=== PATIENT | female | born 1990 | race Asian ===

== ENCOUNTER 2019-01-25 12:12 | Emergency (ER) | payer BC, OTHER ==
[~2019-01-25] VITALS: Ht 157.5 cm; Wt 70.7 kg
[~2019-01-25 12:12] MED LIST: CEPH-443 PO; IBUP-1542 PO
[2019-01-25 12:26] VITALS: PULSE 67; Ht 157.5 cm; Wt 70.7 kg
[2019-01-25] MEDS ORDERED: LIDOCAINE/MYLANTA 40 ML BTL PO STA (15:27)
[2019-01-25] MEDS ORDERED: SULF1TAB31 PO (17:02)
[2019-01-25] MEDS ORDERED: MAG355OR14 PO (17:02)
[2019-01-25] MEDS ORDERED: OMEP40CA6 PO (17:02)
--- NOTE | 2019-01-25 17:21 | ERD ---
ER Documentation Chief Complaint Chief Complaint right lower abdominal pain x 3 days sent by pmd r/o appendicitis HPI This is a 28-year-old female patient who presents to emergency room with request from her primary care doctor for work-up for rule out appendicitis as patient was having right lower quadrant pain while in her doctor's office. Patient is well-appearing, nontoxic, now complaining of pain in left upper quadrant. Altaf klein denies any abdominal surgeries other than in 2015, history of GERD, LMP 1 week ago. ROS All systems reviewed and are negative except as per history of present illness. Medications Home Meds Active Scripts Sulfamethoxazole/Trimethoprim* (Bactrim Ds* Tablet) 1 Each Tablet, 1 TAB PO BID for cystitis for 3 Days, #6 TAB Prov:FAUZIA WIGGINS NP 01/25/19 Mag Hydrox/Al Hydrox/Simeth (Maalox Advanced Suspension) 355 Ml Oral.susp, 10 ML PO prn PRN for DISTENSION/GAS/BLOATING for 10 Days, #100 ML Prov:FAUZIA WIGGINS NP 01/25/19 Omeprazole* (Omeprazole*) 40 Mg Capsule.dr, 40 MG PO DAILY, #30 CAP Prov:FAUZIA WIGGINS NP 01/25/19 Ibuprofen* (Motrin*) 600 Mg Tab, 600 MG PO Q6 PRN for FEVER, #30 Prov:RAKESH BEY MD 04/12/15 Cephalexin* (Keflex*) 500 Mg Capsule, 500 MG PO Q6 for 7 Days, CAP Prov:RAKESH BEY MD 04/12/15 Allergies Allergies: Coded Allergies: No Known Allergy (Unverified , 04/12/15) PMhx/Soc History of Surgery: Yes (C SECTION X2) Anesthesia Reaction: No Hx Neurological Disorder: No Hx Respiratory Disorders: No Hx Cardiac Disorders: No Hx Psychiatric Problems: No Hx Miscellaneous Medical Probl: No Hx Alcohol Use: No Hx Substance Use: No Hx Tobacco Use: No Smoking Status: Never smoker FmHx Family History: No diabetes, No coronary disease, No other Physical Exam Vitals Vital Signs Date Temp Pulse Resp B/P (MAP) Pulse Ox O2 O2 Flow FiO2 Time Delivery Rate 01/25/19 98.3 67 18 165/96 97 12:26 (119) Physical Exam Const: No acute distress Head: Atraumatic Eyes: Normal Conjunctiva ENT: Normal External Ears, Nose and Mouth. Drinks pink, moist, no petechiae, no lesions Neck: Full range of motion. No meningismus. No adenopathy, no thyromegaly Resp: Clear to auscultation bilaterally Cardio: Regular rate and rhythm, no murmurs Abd: Soft, non distended. Normal bowel sounds. Moderate tenderness at LUQ and epigastrium, mild tenderness RLQ, rebound tenderness, no tenderness at McBurney's point, no Nunez's. No pain with movement. Skin: No petechiae or rashes Back: No midline or flank tenderness Ext: No cyanosis, or edema Neur: Awake and alert Psych: Normal Mood and Affect Result Diagram: 01/25/19 1542 01/25/19 1542 Results 24 hrs Laboratory Tests Test 01/25/19 15:30 01/25/19 15:32 01/25/19 15:42 Urine Color YELLOW Urine Clarity SLIGHTLY CLOUDY Urine pH 6.0 Urine Specific [place] 1.017 Urine Ketones NEGATIVE mg/dL Urine Nitrite NEGATIVE mg/dL Urine Bilirubin NEGATIVE mg/dL Urine Urobilinogen NEGATIVE mg/dL Urine Leukocyte Esterase TRACE Caity/ul Urine Microscopic RBC 1 /HPF Urine Microscopic WBC 13 /HPF Urine Squamous Epithelial Cells FEW /HPF Urine Bacteria FEW /HPF Urine Hemoglobin 1+ mg/dL Urine Glucose NEGATIVE mg/dL Urine Total Protein NEGATIVE mg/dl POC Beta HCG, Qualitative NEGATIVE White Blood Count 8.2 10^3/ul Red Blood Count 4.65 10^6/ul Hemoglobin 13.2 g/dl Hematocrit 41.4 % Mean Corpuscular Volume 89.0 fl Mean Corpuscular Hemoglobin 28.4 pg Mean Corpuscular 31.9 g/dl Hemoglobin Concent Red Cell Distribution Width 12.5 % Platelet Count 339 10^3/UL Mean Platelet Volume 9.1 fl Immature Granulocytes % 0.400 % Neutrophils % 52.1 % Lymphocytes % 41.4 % Monocytes % 4.1 % Eosinophils % 1.3 % Basophils % 0.7 % Nucleated Red Blood Cells % 0.0 /100WBC Immature Granulocytes # 0.030 10^3/ul Neutrophils # 4.3 10^3/ul Lymphocytes # 3.4 10^3/ul Monocytes # 0.3 10^3/ul Eosinophils # 0.1 10^3/ul Basophils # 0.1 10^3/ul Nucleated Red Blood Cells # 0.0 10^3/ul Sodium Level 141 mmol/L Potassium Level 3.8 mmol/L Chloride Level 104 mmol/L Carbon Dioxide Level 28 mmol/L Anion Gap 9 Blood Urea Nitrogen 13 mg/dl Creatinine 0.70 mg/dl Est Glomerular Filtrat > 60 mL/min Rate mL/min Glucose Level 94 mg/dl Calcium Level 9.5 mg/dl Total Bilirubin 0.4 mg/dl Direct Bilirubin 0.00 mg/dl Indirect Bilirubin 0.4 mg/dl Aspartate Amino 22 IU/L Transf (AST/SGOT) Alanine 9 IU/L Aminotransferase (ALT/SGPT) Alkaline Phosphatase 74 IU/L Total Protein 8.5 g/dl Albumin 4.6 g/dl Globulin 3.90 g/dl Albumin/Globulin Ratio 1.17 Lipase 47 U/L Current Medications Medications Dose Sig/Leah Start Time Status Last (Trade) Ordered Route PRN Stop Time Admin Dose Reason Admin 40 ml ONCE STAT 01/25/19 DC 01/25/19 Miscellaneous PO 15:27 15:34 Medication 01/25/19 15:30 (Gi Cocktail (2)) Procedures/MDM This is a 28-year-old female patient with complaint of abdominal pain x3 days. ED COURSE: The patient was stable throughout ED course. I kept the patient and/or family informed of laboratory and diagnostic imaging results throughout the ED course. DIAGNOSTIC IMAGING: Not indicated at this time PROCEDURES: None. MEDICATIONS GIVEN: GI cocktail Patient tolerated medication well with no adverse reactions. Patient reported improvement in pain. MDM: Patient presents today with right lower quadrant left upper quadrant and epigastric abdominal pain. No vomiting, no diarrhea, no fever, reported hematuria.There is low suspicion for pyelonephritis, vaginitis, STI, or interstitial cystitis due to absence of clinical findings that would support a diagnosis more serious than uncomplicated UTI. There is low suspicion for appendicitis at this time as patient does not have a leukocytosis, no fever, no rebound tenderness in the RLQ. These diagnoses have been considered and excluded clinically. Nonetheless, it is understood by both the patient and provider that no clinical or diagnostic assessment can entirely exclude such diseases. Patient has been instructed on signs and symptoms of concern or with evolving condition with strict instructions to return to ED for reevaluation. DISPOSITION: The patient has been discharge home to follow-up with community physician. Departure Diagnosis: Primary Impression: Abdominal pain Condition: Stable Patient Instructions: Abdominal Pain, Gerd (Adult) Referrals: [facility] YOU HAVE RECEIVED A MEDICAL SCREENING EXAM AND THE RESULTS INDICATE THAT YOU DO NOT HAVE A CONDITION THAT REQUIRES URGENT TREATMENT IN THE EMERGENCY DEPARTMENT. FURTHER EVALUATION AND TREATMENT OF YOUR CONDITION CAN WAIT UNTIL YOU ARE SEEN IN YOUR DOCTORS OFFICE WITHIN THE NEXT 1-2 DAYS. IT IS YOUR RESPONSIBILITY TO MAKE AN APPOINTMENT FOR FOLOW-UP CARE. IF YOU HAVE A PRIMARY DOCTOR --you should call your primary doctor and schedule an appointment IF YOU DO NOT HAVE A PRIMARY DOCTOR YOU CAN CALL OUR PHYSICIAN REFERRAL HOTLINE AT IF YOU CAN NOT AFFORD TO SEE A PHYSICIAN YOU CAN CHOSE FROM THE FOLLOWING [facility] [address] [facility] [address] [facility] [address] [facility] [address] [facility] [address] [facility]. [facility]. [address] Additional Instructions: Thank you very much for allowing us to participate in your care. Your health and safety is our top priority at [facility]. Call your primary care doctor TOMORROW for an appointment during the next 2-4 days and bring all the information and medications prescribed. Have prescriptions filled and follow precisely the directions on the label. If the symptoms get worse and your provider is unavailable, return to the Emergency Department immediately. RETURN TO THE ER IMMEDIATELY FOR WORSEING OF ABDOMINAL PAIN, FEVER, DECREASED ORAL INTAKE, BLOOD IN URINE OR STOOL FAUZIA WIGGINS NP January 25, 2019 17:20
[2019-01-25 17:26] VITALS: BP 152/90; RESP 18
== END 2019-01-25 17:24 | disposition home or self-care (01) ==
LOC: FTE 12:12
DX: R10.12 Left upper quadrant pain (principal); R10.31 Right lower quadrant pain
CPT/HCPCS: 36415; 80053; 81001; 81025; 83690; 85025; 87086; 99283